=== PATIENT | male | born 1990 | race Caucasian/White ===

== ENCOUNTER 2020-11-11 22:21 | Emergency (ER) | payer OTHER ==
[2020-11-11 22:32] VITALS: BP 135/85; PULSE 101; TEMP 98; BMI 32.6
[2020-11-11 23:09] LABS: BASO % 3.6 % (0-2.0); EOS % 1.2 % (0-4.5); HEMATOCRIT 46.1 % (35.4-49); HEMOGLOBIN 15.8 GM/dl (11.7-16.9); LYMPH % 32.5 % (8-40); MCH 30.9 pg (25.7-33.7); MCHC 34.3 g/dl (32.0-35.9); MEAN CELL VOLUME 90.2 fl (80-96); MEAN PLT VOLUME 9.1 fl (7.5-11.1); MONO % 6.8 % (3.8-10.2); NEUT % 55.9 % (42.8-82.8); PLATELET COUNT 219 K/MM3 (134-434); RBC 5.11 M/mm3 (4.00-5.60); RDW 11.9 % (11.9-15.9); WHITE BLOOD COUNT 5.9 K/mm3 (4.0-10.8)
[2020-11-11 23:18] LABS: ALBUMIN 5.1 g/dl (3.4-5.0); BILIRUBIN,TOTAL 0.6 mg/dl (0.2-1); CALCIUM 9.3 mg/dl (8.5-10); CREATININE 1.3 mg/dl (0.55-1.3); PHOSPHOROUS 3.6 mg/dl (2.5-4.9); TOT PROT 7.7 g/dl (6.4-8.2); URIC ACID 6.7 mg/dl (2.6-7.2)
[2020-11-12 03:24] LABS: HIV INTERPRETATION NEGATIVE (NEGATIVE)
== END 2020-11-11 23:30 | disposition home or self-care (01) ==
LOC: FER 22:21
DX: S60.511A Abrasion of right hand, initial encounter (principal); Z77.21 Contact with and (suspected) exposure to potentially hazardous body fluids
CPT/HCPCS: 36415; 80053; 82465; 82977; 83615; 84100; 84478; 84550; 85025; 86317; 86704; 86706; 86803; 87340; 87389; 99284-25

== ENCOUNTER 2021-08-05 18:06 | Emergency (ER) | payer OTHER ==
[2021-08-05 18:27] VITALS: BMI 32.6
[2021-08-05 18:42] VITALS: BP 132/77; PULSE 83; TEMP 98.3
[2021-08-05] MEDS ORDERED: DIPHTH,PERTUSS(ACELL),TET 0.5 ML DISP.SYRIN IM ONE ×2 (19:39→19:45)
== END 2021-08-05 19:52 | disposition home or self-care (01) ==
LOC: FER 18:06
PROC: 3E0233Z Introduction of Anti-inflammatory into Muscle, Percutaneous Approach (ICD-10-PCS; principal; 2021-08-05)
DX: S50.811A Abrasion of right forearm, initial encounter (principal); Y35.401A Legal intervention involving unspecified sharp objects, law enforcement official injured, initial encounter
CPT/HCPCS: 90715; 99284-25

== ENCOUNTER 2022-04-08 22:24 | Emergency (ER) | payer OTHER ==
[2022-04-08 22:30] VITALS: BP 146/81; PULSE 93; TEMP 98.1; BMI 32.6
== END 2022-04-09 00:54 | disposition home or self-care (01) ==
LOC: FER 22:24
DX: Z77.21 Contact with and (suspected) exposure to potentially hazardous body fluids (principal)
CPT/HCPCS: 99282-25

== ENCOUNTER 2022-04-27 21:01 | Emergency (ER) | payer OTHER ==
[2022-04-27 21:18] VITALS: BP 140/82; PULSE 83; TEMP 98.5; BMI 32.6
== END 2022-04-27 22:59 | disposition home or self-care (01) ==
LOC: FER 21:01
DX: S61.412A Laceration without foreign body of left hand, initial encounter (principal); S61.411A Laceration without foreign body of right hand, initial encounter; S81.012A Laceration without foreign body, left knee, initial encounter; Y93.39 Activity, other involving climbing, rappelling and jumping off
CPT/HCPCS: 99281-25

== ENCOUNTER 2022-05-13 13:03 | Emergency (ER) | payer OTHER ==
[2022-05-13 13:15] VITALS: BP 147/93; PULSE 98; TEMP 98.3; BMI 32.6
== END 2022-05-13 13:39 | disposition home or self-care (01) ==
LOC: FER 13:03
DX: S80.212A Abrasion, left knee, initial encounter (principal); Y99.8 Other external cause status
CPT/HCPCS: 99282-25

== ENCOUNTER 2022-06-08 20:00 | Emergency (ER) | payer OTHER ==
[2022-06-08 20:34] VITALS: BP 153/96; PULSE 106; RESP 16; TEMP 98.9; BMI 32.6
[2022-06-08] MEDS ORDERED: IBUPROFEN 400 MG TABLET (FP) PO ONE ×2 (21:02→21:05)
== END 2022-06-08 22:11 | disposition home or self-care (01) ==
LOC: FER 20:00
DX: S60.416A Abrasion of right little finger, initial encounter (principal); S80.212A Abrasion, left knee, initial encounter; Y04.8XXA Assault by other bodily force, initial encounter
CPT/HCPCS: 73560-TC-LT-FY; 99283-25

== ENCOUNTER 2022-07-04 17:17 | Emergency (ER) | payer OTHER ==
[2022-07-04 17:34] VITALS: BP 132/73; PULSE 88; RESP 16; TEMP 98.4; BMI 32.6
== END 2022-07-04 18:40 | disposition home or self-care (01) ==
LOC: FER 17:17
DX: S61.211A Laceration without foreign body of left index finger without damage to nail, initial encounter (principal); Y35.811A Legal intervention involving manhandling, law enforcement official injured, initial encounter
CPT/HCPCS: 99281-25

== ENCOUNTER 2023-08-15 20:33 | Emergency (ER) | payer OTHER, BC ==
[2023-08-15 20:46] VITALS: BP 142/83; PULSE 60; RESP 16; TEMP 99.1; BMI 32.6
[2023-08-15] MEDS ORDERED: IBUPROFEN 400 MG TABLET (FP) PO ONE ×2 (21:22→21:26)
[2023-08-15] MEDS ORDERED: CYCLOBENZAPRINE HCL 10 MG TABLET (FP) PO ONE (21:22)
[2023-08-15] MEDS ORDERED: CYCLOBENZAPRINE HCL 5 MG TABLET ONE (21:27)
== END 2023-08-15 22:19 | disposition home or self-care (01) ==
LOC: FER 20:33
DX: S80.212A Abrasion, left knee, initial encounter (principal); M54.50 Low back pain, unspecified; V89.2XXA Person injured in unspecified motor-vehicle accident, traffic, initial encounter; Y93.I9 Activity, other involving external motion; Y92.410 Unspecified street and highway as the place of occurrence of the external cause
CPT/HCPCS: 72100-TC-FY; 99283-25

== ENCOUNTER 2024-04-16 18:14 | Emergency (ER) | payer OTHER ==
[2024-04-16 18:48] VITALS: BP 129/85; PULSE 87; RESP 18; TEMP 98.9; BMI 28.7
== END 2024-04-16 19:25 | disposition home or self-care (01) ==
LOC: FER 18:14
DX: S50.311A Abrasion of right elbow, initial encounter (principal)
CPT/HCPCS: 99282-25